=== PATIENT | female | born 1960 | race Caucasian/White ===

== ENCOUNTER 2020-07-13 19:29 | Inpatient (IN) | payer OTHER, SELFPAY ==
[~2020-07-13] VITALS: Ht 165.1 cm; Wt 59.9 kg
[2020-07-13 19:30] VITALS: BP 118/68
--- NOTE | 2020-07-13 19:30 | NUR ---
PT TAKEN TO BED #11
--- NOTE | 2020-07-13 19:39 | NUR ---
JAMES MARTINES AT BEDSIDE EVALUATING PT.
--- NOTE | 2020-07-13 19:40 | NUR ---
60 Y/O FEMALE BIBA POST FALL & POSSIBLE FX PER EMS AND PT "AFTER HER DOG PULLED HER LEASH". PT REPORTS LANDING ON THE CURVE. REPORTS 02/28 "SEVERE" PAIN TO R ANKLE AND R HAND. PER EMS PT WAS GIVEN 100 mcg OF FENTANYL ON ROUTE. AREA WAS NOTED WITH READNESS, SWELLING AND DEFORMITY TO SITE. PT WAS PLACED ON CARDIAC AND PULSE OXIMETRY. BED LOCKED AND IN LOWEST POSITION. MEDHX: DEPRESSION, ANXIETY AND FRIBROMYALGIA ALLERGIES TO VOLTAREN PILL FORM.
--- NOTE | 2020-07-13 19:46 | NUR ---
XRAY AT BEDSIDE.
[2020-07-13] MEDS ORDERED: MORPHINE SULFATE 4 MG/ML SYR IVP ONE (20:25)
--- NOTE | 2020-07-13 20:45 | NUR ---
PT SIGNED CONSENT FOR MODERATE SEDATION PROCEDURE TO HAVE REDUCTION OF R ANKLE.
[2020-07-13] MEDS ORDERED: PROPOFOL 200 MG/20 ML VIAL IV ONE (20:50)
--- NOTE | 2020-07-13 21:22 | NUR ---
PT WAS NOTED DESATURATING TO 93% ON RA ON PULSE OXIMETRY, PT WAS PLACED ON 2 L VIA NC.
--- NOTE | 2020-07-13 21:25 | NUR ---
PROCEDURE FOR R ANKLE REDUCTION ON MODERATE SEDATION INITIATED. ER MD TO ADMINISTER MEDICATION. RT AT BEDSIDE WITH AMBU-BAG 7 SUCTION SET UP. PT ON TEXTILE KNITTER, PULSE OXIMETRY AND BP MONITORING Q5 MIN. 2 L NC RUNNING. SEE MODERATE SEDATION RECORD FOR FURTHER DETAILS.
--- NOTE | 2020-07-13 21:26 | NUR ---
RECEIVED EMERGENCY CONTACT: CARO (DAUGHTER) .
--- NOTE | 2020-07-13 21:35 | NUR ---
ASSISTED WITH SEDATION AND REDUCTION PROCEDURE. PLACED POSTERIOR LONG LEG SPLINT ON PT R LEG, WRAPPED WITH DANICA WRAP. +CSM
--- NOTE | 2020-07-13 21:56 | NUR ---
LENA SWAB COLLECTED AND TAKEN TO LAB.
[2020-07-13] MEDS ORDERED: POTASSIUM CHLORIDE 10 MEQ TABER PO PRN (22:10)
[2020-07-13] MEDS ORDERED: ZOLPIDEM 5 MG TAB PO PRN (22:10)
[2020-07-13] MEDS ORDERED: MAG SULF 2000 MG/WATER PREMIX 50 ML IV PRN (22:10)
[2020-07-13] MEDS ORDERED: LORazepam 2 MG/ML VIAL IM/IVP PRN (22:10)
[2020-07-13] MEDS ORDERED: DOCUSATE SODIUM 100 MG GELCAP PO PRN (22:10)
[2020-07-13] MEDS ORDERED: ONDANSETRON 4 MG/2 ML VIAL IM/IVP PRN (22:10)
--- NOTE | 2020-07-13 22:20 | NUR ---
X-RAY AT BEDSIDE.
--- NOTE | 2020-07-13 22:20 | NUR ---
CALLED TO BEDSIDE FOR CONSC SEDATION PT WAS PLACED ON ETCO2 (NC) PT TOLERATED WELL
--- NOTE | 2020-07-13 22:34 | NUR ---
LABS COLLECTED AND HANDED TO POWDER MILL OPERATOR.
[2020-07-13 22:44] LABS: BASOPHILS % (AUTO) 0.3 % (0.0-2.0); EOSINOPHILS % (AUTO) 0.1 % (0.0-4.0); HEMATOCRIT 43.5 % (36-48); HEMOGLOBIN 14.4 g/dL (12.0-16.0); LYMPHOCYTES # (AUTO) 1.6 K/uL (2.5-16.5); LYMPHOCYTES % (AUTO) 9.3 % (20.5-51.1); MEAN CORPUSCULAR HEMOGLOBIN 31 pg (27-31); MEAN CORPUSCULAR HGB CONC 33 g/dL (33-37); MEAN CORPUSCULAR VOLUME 93.8 fL (80-94); MONOCYTES # (AUTO) 0.6 K/uL (0.8-1.0); MONOCYTES % (AUTO) 3.3 % (1.7-9.3); NEUTROPHILS # (AUTO) 14.7 K/uL (1.8-7.7); PLATELET COUNT (AUTO) 246 K/uL (140-450); RED BLOOD CELL COUNT(AUTO) 4.63 MIL/uL (4.20-5.40); RED CELL DISTRIBUTION WIDTH 13.6 % (11.6-13.7); WHITE BLOOD COUNT (AUTO) 16.9 K/uL (4.8-10.8)
[2020-07-13] MEDS: DEXT 5% /NACL 0.9% 1,000 ML IV SCH (22:49)
--- NOTE | 2020-07-13 22:50 | NUR ---
PT TAKEN TO CT VIA RSPENCER.
--- NOTE | 2020-07-13 22:56 | NUR ---
PT RETURNED FROM CT.
[2020-07-13 23:12] LABS: CHOL/HDL RATIO 5.2 (1-4.5); MAGNESIUM 1.9 mg/dL (1.8-2.4); PHOSPHORUS 2.7 mg/dL (2.5-4.9); THYROID STIMULATING HORMONE 1.23 uIU/mL (0.34-3.74)
[2020-07-13 23:28] LABS: ANION GAP 9.9 (8-16); CARBON DIOXIDE 29.9 mmol/L (21-32); POTASSIUM 3.8 mmol/L (3.5-5.1)
[2020-07-13 23:29] LABS: CREATININE 0.8 mg/dL (0.6-1.3)
[2020-07-13 23:41] LABS: PROTHROMBIN TIME 9.6 secs (10.8-13.4)
--- NOTE | 2020-07-13 23:42 | NUR ---
PODIATRY CONSULT AT BEDSIDE EVALUATING PT.
[2020-07-13] MEDS ORDERED: GABA300C PO (23:48)
[2020-07-13] MEDS ORDERED: DULO20EC PO (23:48)
--- NOTE | 2020-07-14 00:01 | NUR ---
SHIP YARD ELECTRICAL PERSON AT BEDSIDE PERFORMING PROCEDURE ON R ANKLE/LEG AT BEDSIDE.
[2020-07-14] MEDS: LACTATED RINGERS 1,000 ML IV SCH (00:11)
--- NOTE | 2020-07-14 01:52 | NUR ---
Patient appears to be resting comfortably in bed. Vital Signs within normal limits. Respirations even and unlabored. Pt still verbalizes having some discomfort at site: R ankle and R arm. No current c/o of pain. Remains on 2 L of oxygen via NC on site monitor, pulse oximetry and bp monitoring.
--- NOTE | 2020-07-14 03:35 | NUR ---
Pt was offerred to use restroom via bedpan Pt stated, "no i dont need to use the bathroom right now". She appears to be resting comfortably in bed. Vital Signs within normal limits. Respirations even and unlabored. Pt still verbalizes having some discomfort at site: R ankle and R arm. No current c/o of pain. Titrated oxygen to 1 L of oxygen via NC pt doing well. Remains on cardiac specialist, pulse oximetry and bp monitoring.
--- NOTE | 2020-07-14 04:15 | NUR ---
LAB AT BEDSIDE COLLECTING MORNING LABS.
--- NOTE | 2020-07-14 05:57 | NUR ---
PT STILL LAYING IN BED, BREATHING EVEN AND UNLABORED. SHE CONTINUES ON DROSS PULLER, PULSE OXIMETRY & BP MONITOR. REMAINS ON 1 L OF OXYGEN VIA NC. BED LOCKED AND IN LOWEST POSITION. WAS OFFERED ASSISTANCE TO USE BATHROOM VIA BEDPAN. PT STATED, "NO I'M OKAY THANK YOU". PT WAS REPOSITIONED FOR COMFORT.
[2020-07-14 06:21] LABS: BASOPHILS % (AUTO) 0.4 % (0.0-2.0); EOSINOPHILS # (AUTO) 0.1 K/uL (0-0.4); EOSINOPHILS % (AUTO) 0.5 % (0.0-4.0); HEMATOCRIT 42.5 % (36-48); HEMOGLOBIN 14.3 g/dL (12.0-16.0); LYMPHOCYTES # (AUTO) 2.6 K/uL (2.5-16.5); LYMPHOCYTES % (AUTO) 21.8 % (20.5-51.1); MEAN CORPUSCULAR HEMOGLOBIN 32 pg (27-31); MEAN CORPUSCULAR HGB CONC 34 g/dL (33-37); MEAN CORPUSCULAR VOLUME 94.1 fL (80-94); MONOCYTES # (AUTO) 0.8 K/uL (0.8-1.0); MONOCYTES % (AUTO) 6.5 % (1.7-9.3); NEUTROPHILS # (AUTO) 8.5 K/uL (1.8-7.7); NEUTROPHILS % (AUTO) 70.8 % (42.2-75.2); PLATELET COUNT (AUTO) 204 K/uL (140-450); RED BLOOD CELL COUNT(AUTO) 4.52 MIL/uL (4.20-5.40); RED CELL DISTRIBUTION WIDTH 13.7 % (11.6-13.7)
[2020-07-14 06:35] LABS: ANION GAP 9.9 (8-16); CARBON DIOXIDE 27.9 mmol/L (21-32); CREATININE 0.8 mg/dL (0.6-1.3); POTASSIUM 3.8 mmol/L (3.5-5.1)
--- NOTE | 2020-07-14 07:00 | NUR ---
Pt was reofferred to use restroom via bedpan Pt stated, "I am so sorry i cant go i haven't had anything to drink since yesterday evening".
[2020-07-14 07:08] LABS: MAGNESIUM 1.9 mg/dL (1.8-2.4); PHOSPHORUS 3.2 mg/dL (2.5-4.9)
--- NOTE | 2020-07-14 07:12 | NUR ---
REPORT GIVEN TO AMAIRANI WATSON FOR CONTINUITY OF CARE.
--- NOTE | 2020-07-14 07:13 | NUR ---
REPORT RECEIVED FROM WALTER BUSTILLO. [place] OF [facility] AT THIS TIME.
[2020-07-14] MEDS: MORPHINE SULFATE 2 MG/ML SYR IVP PRN ×2 (07:34→11:05)
--- NOTE | 2020-07-14 08:19 | NUR ---
PT STATES THE PAIN IS STILL 7/10 AFTER RECEIVING MORPHINE 2MG IVP. 2 ICE PACKS PLACES ON PT'S RIGHT WRIST.
--- NOTE | 2020-07-14 08:59 | NUR ---
Dr. Samuel is evaluating the patient at bedside.
--- NOTE | 2020-07-14 09:00 | NUR ---
CONFIRMED WITH DR. LOCK TO HOLD HEPARIN 5000 UNITS.
--- NOTE | 2020-07-14 09:07 | NUR ---
BREAKFAST ORDERED FOR PT PER DR. TRUONG'S ORDER.
--- NOTE | 2020-07-14 09:35 | NUR ---
Breakfast provided to pt. Pt will be on NPO after breakfast per Dr. Samuel's order.
--- NOTE | 2020-07-14 11:35 | NUR ---
SOCIAL WORK NOTE: SW WAS UNABLE TO MEET PATIENT AT BEDSIDE. PATIENT HAS NO AVAILABLE CONTACTS TO COMPLETE ASSESSMENT. SW WILL FOLLOW UP WITH PATIENT. Addendum: 07/15/20 at 1318 by Laz Schuler Patient's Orientation Person Situation Place Time Information Provided By PATIENT Comments SW WAS UNABLE TO MEET WITH PATIENT AT BEDSIDE. SW COMPLETED ASSESSMENT WITH PATIENT TELEPHONICALLY. PATIENT PROVIDED EMERGENCY CONTACT FOR DAUGHTER HARDEEP GARCIA. Hardboard Coating Machine Operator, Realtionship and Phone Number HARDEEP GARCIA DAUGHTER [phone] [facility] Power of Equipment Driver No Does Patient Have a POLST No Identifying Problems No Social Work Triggers Is A Social Work Consult Needed No Mandate Report Filed No Explanation Of Identifying Problems PATIENT IS A 60-YEAR-OLD FEMALE ADMITTED FOR TRIMALCOLAR FRACTURE. PATIENT HAS PMHX OF FIBROMYALGIA. PATIENT REPORTED NO HISTORY OF SUBSTANCE ABUSE. PATIENT DISCLOSED THAT SHE WAS DIAGNOSED WITH DEPRESSION BUT REFUSED MENTAL HEALTH RESOURCES. PATIENT STATED SHE HAS SUPPORT GROUPS THAT SHE SPEAKS WITH REGARDING HER DEPRESSION AND IS NO LONGER AN ISSUE. Admitted From Home Pre-Admission Level Of Functioning Status Independent/Ambulatory Prior Resources/Services Used In Last 12 Months No Prior Resources Used Prior DME No Prior DME Used Dialysis Comments N/A Living Situation Lives With Family House Other Living Situation/Comment PATIENT REPORTED LIVING WITH TWO DAUGHTERS. Patient Had Caregiver No Home Support No Caregiver Issues Financial Issues No Known Financial Issue Referral To The Financial Counselor Needed No Factors/Needs No D/C Needs Identified Explanation And Or Other Factors Affecting/Possible DC Needs PATIENT STATED THAT SHE MAY HAVE DIFFICULTY WITH TRANSPORTATION AT DISCHARGE. Pt/Rep Participated In Discharge Plan Yes Patient/Family Agress With Discharge Plan Yes Discharge Plan Comments TENTATIVE DISCHARGE PLAN IS FOR PATIENT TO RETURN HOME. DC Plan Status Initiated
--- NOTE | 2020-07-14 12:20 | NUR ---
Patient will be admitted to care of Dr. Mcclellan. Admited to Med-Surg. Will go to [id number]. Belongings list completed. Report to WALTER Otto.
[2020-07-14] MEDS: DEXT 5% /NACL 0.9% 1,000 ML IV SCH (12:28)
--- NOTE | 2020-07-14 12:40 | NUR ---
PT ADMITTED FROM ED. STABLE CONDITION, R. ELBOW SWOLLEN ICA PACK APPLIED. R. ANKLE HAS SPLINT, UNABLE TO VISUAL FRACTURE. YELLOW GOWN DONNED, IV LINE DRY, CLEAN, INTACT. PT STATES SHE HAS THROBBING PAIN AT FRACTURE SITE, WILL FOLLOW UP WITH PAIN MEDICATION ORDERED. OFFERED NORCO AND REFUSED. WOULD LIKE PHYSICIAN TO INCREASE MORPHINE TO 4MG INSTEAD OF 2. WILL CONTACT ADMITTING MD. PT CALL LIGHT WITHIN REACH, PLACED PT ON BEDPAN TO COLLECT URINE, PT UNABLE TO VOID, REMOVED AFTER 5 MINUTES TO AVOID SKIN BREAKDOWN, PT TO CALL WHEN FEELING LIKE VOIDING.
--- NOTE | 2020-07-14 13:30 | NUR ---
COMPLETED PT. ADMISSION SHUN BARRON A/Ox4. PT WILLAM LUNG SOUND CLEAR, S1S2 NOTED, NO EDEMA ON L.L.EXTREMITY OR L.UPPER EXTREMITY, L. ELBOW SWELLING, COLD COMPRESS HAS BEEN PLACED, ABD SOFT, TENDER, ACTIVE BOWEL SOUNDS, SKIN INTACT. CAP REFILL<3, UNABLE TO VISUALIZE R. ANKLE DUE TO SOFT CAST PLACED, PT STATES SHE FEEL WARM ON HER R. FOOT, INFORMED HER IT WAS DUE TO THE CAST, BUT IF HEAT BECAME INTOLERABLE TO INFORM ME, PT CAN MOVE TOES ON R. FOOT. IV SITE DRY, CLEAN, INTACT L.AC 20G. Addendum: 07/14/20 at 1906 by Clarita Westfall RN RN CORRECTION: R. ELBOW SWELLING
--- NOTE | 2020-07-14 13:57 | NUR ---
DC PLANNIN YRS OLD FEMALE PATIENT WAS ADMITTED FROM HOME WITH A DX OF TRIMALLEOLAR FRACTURE. PT HAS A HX OF FIBROMYALGIA. XRAY OF THE RIGHT ANKLE SHOWED RT TIBIA-FIBULA FRACTURE, MORTISE DISLOCATION .CXR SHOWED NORMAL CHEST. RAPID COVID TEST NEGATIVE. ADMINISTERED IVF, MORPHINE IV FOR PAIN AND CONSULTED WITH PODIATRY AND ORTHO SURGEON. DC PLAN PER RECOMMENDATION CM TO FOLLOW Addendum: 07/15/20 at 1500 by Luz Maria Day RN DC PLANNING: PT UNDERWENT ORIF OF RIGHT ANKLE ,PERFORMED BY PODIATRY DR TRUONG. SUPPORTIVE CARE AND PAIN MANAGEMENT WILL BE CONTINUED PT EVAL AND WOUND CARE ORDERED DC PLAN TO GO HOME WHEN STABLE AND FOLLOW UP WITH PODIATRY DR TRUONG. AND SEEN BY ORTHO DR ARELLANO ORDERED PT CAN FOLLOW UP WITH DR ARELLANO FOR THE RIGHT ELBOW IN 3 WEEKS AFTER DISCHARGE. DC PLAN AWAITING FOR PT RECOMMENDATION. CM TO FOLLOW Addendum: 07/15/20 at 1505 by Laz GLOVER YENIFER CONTACTED PATIENT'S ROOM PHONE REGARDING DISCHARGE PLAN. YENIFER HAD DISCUSSION WITH PATIENT REGARDING PATIENT'S INSURANCE BELONGING TO [place]. PATIENT STATED THAT SHE WOULD PREFER TO STAY AT HOME WITH HOME HEALTH. YENIFER NOTIFIED MANAGER GOVERNMENT. Addendum: 07/15/20 at 1530 by Laz Schuler SS YENIFER CONTACTED [facility] DEPARTMENT AND SPOKE TO MANUELITO [phone]. YENIFER REQUESTED CONTRACTED HOME HEALTHS FOR PATIENT. MANUELITO STATED SHE WOULD FAX LIST TO CASE MANAGEMENT FAX [phone]. Addendum: 07/15/20 at 1552 by Dora Goddard CHARLES MONAHAN: CALLED DR. TIFF MUKHERJEE'S OFFICE TO SCHEDULE THIS PATIENT A FOLLOW UP APPOINTMENT. SPOKE TO LENELLE SHE STATED THAT DR MUKHERJEE SAID HE IS NOT THE ONE WHO DID THE PROCEDURE ON THIS PATIENT AND THEY ALSO WOULD NOT BE ABLE TO SEE PATIENT WITHOUT A REFERRAL FROM [facility]. PATIENT WOULD HAVE TO SEE HER PCP FIRST AND THEN GET REFERRED FROM THERE. Addendum: 07/16/20 at 1442 by Laz GLOVER YENIFER CONTACTED NATASHA FROM [facility] REGARDING CONTRACTED FACILITIES FOR DISCHARGE PLAN. NATASHA STATED THAT [facility] IS CONTRACTED WITH MAGI HORNE, [facility], AND [facility]. YENIFER FAXED TO ALL THREE FACILITIES AND FOLLOWED UP. YENIFER LEFT A MESSAGE WITH BETTY AT [facility]. YENIFER LEFT VM WITH BARRERA AT [facility]. ZECHARIAH SIBLEY CONTACTED [facility] GRANDA. Addendum: 07/18/20 at 1215 by Luz Maria Day RN DC PLANNING: CHECKED WITH MAGI HARRIS [facility] , THEY ARE ON HOLD TO ADMIT [facility] DEANDRA GRANDA NO BED AVAILABLE. FAXED TO [facility] CM TO FOLLOW Addendum: 07/18/20 at 1245 by Luz Maria Day RN DC PLANNING: CALLED AARON WEAVER SPOKE WITH UMAIR GARZON REVIEWING WILL CALL BACK , PER [facility] ON [facility]. AARON LIRIANO AND [facility] STILL REVIEWING CM TO FOLLOW. Addendum: 07/18/20 at 1347 by Luz Maria Day RN DC PLANNING: RECEIVED A CALL FROM [facility] WEAVER SPOKE WITH UMAIR , ACCEPTED PATIENT CAN GO TO ROOM 22 AND # TO GIVE REPORT [phone] [address] [facility] [id number] ARRANGE TRANSPORT WITH [employer] [phone] SPACE TECHNOLOGIST TIME 4 PM RESERVATION # [phone] [id number] NOTIFIED MEREDITH WATSON. Addendum: 07/18/20 at 1559 by Luz Maria Day RN DC PLANNING: PT REFUSED TO GO TO SNF PREFERRED HOME WITH HOME HEALTH EXPLAINED THAT IT WILL BE SAFE DISCHARGE IF SHE GOES TO SNF FOR PHYSICAL THERAPY BUT PT INSIST TO GO HOME . DOROTHE[facility] SUP EXPLAINED BED SIDE COMMODE AND WHEELCHAIRE WONT BE READY TODAY OR ON THE WEEKEND AND THERE IS NO HOME HEALTH ON WEEKEND. PT STILL INSIST TO GO HOME AND AGREED THAT WITH THE DELAY OF THE WHEELCHAIR OR BED SIDE [facility] AND HOME HEALTH FAXED TO [facility] CM TO FOLLOW.
--- NOTE | 2020-07-14 14:00 | NUR ---
D5/NS INITIATED AT 70 ML/HR. PT IV PATENT, RUNNING. PT TOLERATED PROCEDURE WELL. PT STILL DENIES NEED TO VOID TO COLLECT UA.
--- NOTE | 2020-07-14 16:00 | NUR ---
PT'S BELONGINGS WERE COLLECTED BY DAUGHTER HARDEEP. PANTS, BLOUSE, UNDERGARMENTS, SHOES AND WALLET. BOTH PATIENT AND DAUGHTER ACKNOWLEDGE THAT WALLET WAS GIVEN TO HARDEEP. MARSHALL WAS COUNTED AND $140 WERE IN WALLET UPON HANDING OFF TO DAUGHTER.
[2020-07-14] MEDS: MORPHINE SULFATE 4 MG/ML SYR IVP PRN (16:23)
--- NOTE | 2020-07-14 16:23 | NUR ---
PT C/O SEVERE PAIN AT R. ANKLE AND R. ELBOW 03/31. ADMINISTERED MORPHINE 4MG/6ML OVER TWO MINUTE PERIOD, FLUSHING WITH 6 ML OF NS AFTERWARDS. PT TOLERATED PROCEDURE WELL
[2020-07-14 16:31] VITALS: BP 107/67
--- NOTE | 2020-07-14 17:32 | NUR ---
REASSESSED PAIN, PT AT 12/29 WHICH SHE STATES IS COMFORTABLE FOR HER AT THIS TIME. COLD COMPRESS REPLACED D/T PREVIOUS ONE ALREADY WARM. SWELLING HAS DECREASED FROM THE ORIGINAL STATE WHEN ADMITTED TO UNIT. PT TOLERATED ICE COMPRESS WELL.
--- NOTE | 2020-07-14 18:03 | NUR ---
PT VOIDED 400ML. URINE SPECIMEN COLLECTED AND SUBMITTED TO LAB FOR PROCESSING.
[2020-07-14 18:15] LABS: APPEARANCE,URINE CLEAR (CLEAR); BILIRUBIN,URINE 1+ (NEGATIVE); BLOOD, URINE NEGATIVE (NEGATIVE); COLOR,URINE DARK YELLOW (YELLOW); LEUKOCYTE ESTERASE ,URINE NEGATIVE (NEGATIVE); NITRITE, URINE NEGATIVE (NEGATIVE); UGLUCOSE NEGATIVE (NEGATIVE)
--- NOTE | 2020-07-14 18:31 | NUR ---
COLLECTED MRSA NARES SAMPLE, PT TOLERATED PROCEDURE WELL, DROPPED OFF SPECIMEN AT LAB
--- NOTE | 2020-07-14 19:15 | NUR ---
ENDORSED PT TO KURT INDUCTION FURNACE OPERATOR NURSE. PT STABLE, COMFORTABLE IN BED, REMOVED COLD COMPRESS, CALL LIGHT WITHIN REACH, BED LOWEST POSITION.
--- NOTE | 2020-07-14 19:16 | NUR ---
RECEIVED REPORT FROM ASHA RNGIO. PT AOX4 ON ROOM AIR, AWAITING SCHEDULED ORIF. NO S/S RESPIRATORY DISTRESS. IV SITE LAC 20G PATENT AND INTACT INFUSING IVF ORDERED. HAS SPLINT ON RIGHT ANKLE AND SWELLING ON RIGHT ELBOW. SAFETY MEASURES IN PLACE. CALL LIGHT WITHIN REACH. WILL CONTINUE TO MONITOR
[2020-07-14 19:27] LABS: BARBITURATE, URINE NEGATIVE ng/ml (NEG <=200); BENZODIAZEPINE, URINE NEGATIVE ng/mL (NEG <=200); CANNABINOID, URINE NEGATIVE ng/mL (NEG <=50); COCAINE, URINE NEGATIVE ng/mL (NEG <=300); OPIATE, URINE POSITIVE ng/mL (NEG <=2000); PHENCYCLIDINE SCREEN,URINE NEGATIVE ng/mL (NEG <=25)
[2020-07-14] MEDS ORDERED: GLYCOPYRROLATE 0.2 MG/ML VIAL ONE (19:45)
[2020-07-14] MEDS ORDERED: ROCURONIUM 50 MG/5 ML VIAL IV ONE (19:45)
[2020-07-14] MEDS ORDERED: METOCLOPRAMIDE 10 MG/2 ML INJ VIAL ONE (19:45)
[2020-07-14] MEDS ORDERED: DEXAMETHASONE 4 MG/ML VIAL ONE (19:45)
[2020-07-14] MEDS ORDERED: NEOSTIGMINE 1:1000 10 MG/10 ML VIAL ONE (19:45)
[2020-07-14] MEDS ORDERED: PROPOFOL 200 MG/20 ML VIAL IV ONE (19:45)
[2020-07-14] MEDS ORDERED: ONDANSETRON 4 MG/2 ML VIAL ONE (19:45)
[2020-07-14] MEDS ORDERED: MIDAZOLAM 2 MG/2 ML VIAL ONE (19:45)
[2020-07-14] MEDS ORDERED: fentaNYL citrate 0.05 MG/ML VIAL ONE (19:45)
[2020-07-14] MEDS ORDERED: LIDOCAINE 2% 100 MG/5 ML SYR IVP ONE (19:45)
[2020-07-14] MEDS ORDERED: BUPIVACAINE-MPF 0.5% 30 ML VIAL INJ ONE ×2 (19:49→19:50)
[2020-07-14] MEDS ORDERED: LIDOCAINE 1% 500 MG/50 ML VIAL ONE (19:49)
--- NOTE | 2020-07-14 20:00 | NUR ---
OFF UNIT FOR SX. PATIENT IN STABLE CONDITION.
[2020-07-14] MEDS ORDERED: HYDROmorphone 1 MG/ML AMP IVP PRN (21:15)
[2020-07-14] MEDS ORDERED: ONDANSETRON 4 MG/2 ML VIAL IVP PRN (21:15)
[2020-07-14] MEDS ORDERED: MEPERIDINE 25 MG/ML SYR IVP PRN (21:15)
[2020-07-14] MEDS ORDERED: diphenhydrAMINE 50 MG/ML VIAL IVP PRN (21:15)
--- NOTE | 2020-07-14 23:51 | NUR ---
PT BACK FROM SX. VS: TEMP 97.0 BP 117/74 HR 81 O2 SAT 94% RR 18. SAFETY MEASURES IN PLACE. CALL LIGHT WITHIN REACH
--- NOTE | 2020-07-14 23:55 | NUR ---
ICING AND ELEVATION TO RLE. PT IS STABLE. CALL LIGHT WITHIN REACH. SAFETY MEASURES IN PLACE. WILL CONTINUE TO MONITOR
[2020-07-15] MEDS: MORPHINE SULFATE 4 MG/ML SYR IVP PRN ×2 (01:34→11:07)
--- NOTE | 2020-07-15 01:36 | NUR ---
ADMINISTERED PRN PAIN MED FOR ANKLE PAIN 02/28. TOLERATED WELL. NO DISTRESS NOTED. WILL CONTINUE TO MONITOR
--- NOTE | 2020-07-15 02:45 | NUR ---
PT ASLEEP IN BED. RESPIRATIONS EVEN AND UNLABORED. NO DISTRESS NOTED. WILL CONTINUE TO MONITOR
[2020-07-15] MEDS: DEXT 5% /NACL 0.9% 1,000 ML IV SCH (03:31)
[2020-07-15] MEDS: HYDROcodone/APAP 5/325 MG 1 TAB TAB PO PRN ×3 (03:32→16:40)
[2020-07-15 04:30] VITALS: BP 94/64
[2020-07-15] MEDS: LACTATED RINGERS 1,000 ML IV SCH (05:30)
--- NOTE | 2020-07-15 06:00 | NUR ---
NO DRAINAGE ON SX DRESSING, SKIN WARM AND PINK, NO SWELLING, ABLE TO WIGGLE TOES ON RIGHT FOOT.
[2020-07-15 06:07] LABS: BASOPHILS % (AUTO) 0.1 % (0.0-2.0); HEMATOCRIT 40.4 % (36-48); HEMOGLOBIN 13.3 g/dL (12.0-16.0); LYMPHOCYTES # (AUTO) 1.1 K/uL (2.5-16.5); LYMPHOCYTES % (AUTO) 8.2 % (20.5-51.1); MEAN CORPUSCULAR HEMOGLOBIN 31 pg (27-31); MEAN CORPUSCULAR HGB CONC 33 g/dL (33-37); MEAN CORPUSCULAR VOLUME 94.1 fL (80-94); MONOCYTES # (AUTO) 0.8 K/uL (0.8-1.0); MONOCYTES % (AUTO) 5.9 % (1.7-9.3); NEUTROPHILS # (AUTO) 11.5 K/uL (1.8-7.7); NEUTROPHILS % (AUTO) 85.8 % (42.2-75.2); PLATELET COUNT (AUTO) 236 K/uL (140-450); RED BLOOD CELL COUNT(AUTO) 4.29 MIL/uL (4.20-5.40); RED CELL DISTRIBUTION WIDTH 13.8 % (11.6-13.7); WHITE BLOOD COUNT (AUTO) 13.3 K/uL (4.8-10.8)
[2020-07-15 06:56] LABS: ANION GAP 17.3 (8-16); CARBON DIOXIDE 24.6 mmol/L (21-32); CREATININE 0.9 mg/dL (0.6-1.3); POTASSIUM 3.9 mmol/L (3.5-5.1)
[2020-07-15 07:00] LABS: MAGNESIUM 1.8 mg/dL (1.8-2.4); PHOSPHORUS 2.9 mg/dL (2.5-4.9)
--- NOTE | 2020-07-15 07:20 | NUR ---
ENDORSED PT TO DAY RN FOR CONTINUITY OF CARE. PT IS IN STABLE CONDITION
--- NOTE | 2020-07-15 08:00 | NUR ---
RECEIVED REPORT FROM DESKTOP OPERATOR. PATIENT ALERT AWAKE ORIENTED X4, NOT IN ANY DISTRESS NOTED. WITH IVF ON GOING AND INFUSING WELL. C/O RIGHT ANKLE PAIN, MEDICATED ORDERED. PATIENT TO WIGGLE ALL TOES ON THE RIGHT FOOT. DISCUSSED THE PLAN OF CARE AND VERBALIZED UNDERSTANDING, IN STABLE CONDITION. WILL CONTINUE TO MONITOR.
[2020-07-15 08:07] LABS: T4 (THYROXINE) 7.8 ug/dL (4.5-12.0)
--- NOTE | 2020-07-15 09:14 | NUR ---
PATIENT HAS BEEN SCREENED AND CATEGORIZED LOW NUTRITION RISK. PATIENT WILL BE SEEN WITHIN 7 DAYS OF ADMISSION. 07/20/[address]
[2020-07-15 12:00] VITALS: BP 106/71
[2020-07-15 18:00] VITALS: BP 138/76
--- NOTE | 2020-07-15 19:57 | NUR ---
PATIENT NO IV AT THIS TIME, TRIED COUPLE OF TIME UNSUCCESSFUL. WILL ENDORSE TO THE NEXT SHIFT. REPORT GIVEN IN STABLE CONDITION.
--- NOTE | 2020-07-15 19:58 | NUR ---
RECD. RESTING IN BED, AWAKE, A/OX4. RESPIRATION EVEN AND UNLABORED. WATCHING TV. INCISION IN THE RIGHT ANKLE WITH DANICA WRAPPED BANDAGE, TOES POSITIVE FOR MOVEMENTS, SENSATION, CAPILLARY REFILL LESS THREE SECONDS. DANICA WRAPPED AT THE RIGHT ELBOW IN PLACED. USES BEDPAN. PAIN IN THE RIGHT ANKLE, 08/31 STATED TOLERABLE. WILL MEDICATE PER MD ORDER. ON ROOM AIR. TOLERATING REGULAR DIET.
[2020-07-15] MEDS: ACETAMINOPHEN 325 MG TAB PO PRN (19:59)
--- NOTE | 2020-07-15 20:56 | NUR ---
NORCO 5/325 MG 1 TAB PO GIVEN FOR RIGHT ANKLE PAIN 01/29.
--- NOTE | 2020-07-15 21:56 | NUR ---
RESTING COMFORTABLY IN BED, STATED PAIN DECREASED, 3/10.
--- NOTE | 2020-07-15 22:00 | NUR ---
Patient's Plan of Care was discussed and reviewed with OVEN HEATER HELPER: FAITH DE LA GARZA
--- NOTE | 2020-07-16 | NUR ---
ASSISTED WITH BED MCCOY X2, MADE COMFORTABLE IN BED.
--- NOTE | 2020-07-16 02:00 | NUR ---
RESTING COMFORTABLY SLEEPING IN BED.
[2020-07-16 04:00] VITALS: BP 113/77
--- NOTE | 2020-07-16 05:00 | NUR ---
PATIENT IS A HARD STICK, UNABLE TO PUT NEW IV LINE.
[2020-07-16] MEDS: HYDROcodone/APAP 5/325 MG 1 TAB TAB PO PRN ×4 (05:28→22:13)
[2020-07-16 05:29] LABS: BASOPHILS % (AUTO) 0.3 % (0.0-2.0); EOSINOPHILS # (AUTO) 0.1 K/uL (0-0.4); EOSINOPHILS % (AUTO) 0.6 % (0.0-4.0); HEMATOCRIT 35.8 % (36-48); HEMOGLOBIN 12.1 g/dL (12.0-16.0); LYMPHOCYTES # (AUTO) 2.6 K/uL (2.5-16.5); LYMPHOCYTES % (AUTO) 26.2 % (20.5-51.1); MEAN CORPUSCULAR HEMOGLOBIN 32 pg (27-31); MEAN CORPUSCULAR HGB CONC 34 g/dL (33-37); MEAN CORPUSCULAR VOLUME 94.4 fL (80-94); MONOCYTES # (AUTO) 0.8 K/uL (0.8-1.0); MONOCYTES % (AUTO) 8.5 % (1.7-9.3); NEUTROPHILS # (AUTO) 6.3 K/uL (1.8-7.7); NEUTROPHILS % (AUTO) 64.4 % (42.2-75.2); PLATELET COUNT (AUTO) 192 K/uL (140-450); RED BLOOD CELL COUNT(AUTO) 3.79 MIL/uL (4.20-5.40); RED CELL DISTRIBUTION WIDTH 13.6 % (11.6-13.7); WHITE BLOOD COUNT (AUTO) 9.8 K/uL (4.8-10.8)
[2020-07-16 06:33] LABS: MAGNESIUM 1.7 mg/dL (1.8-2.4); PHOSPHORUS 2.3 mg/dL (2.5-4.9)
[2020-07-16 06:36] LABS: ANION GAP 11.1 (8-16); CARBON DIOXIDE 29.3 mmol/L (21-32); CREATININE 0.8 mg/dL (0.6-1.3); POTASSIUM 3.4 mmol/L (3.5-5.1)
--- NOTE | 2020-07-16 07:00 | NUR ---
CONDITION REMAIN STABLE. WILL ENDORSE TO AM SHIFT NURSE FOR CONTINUITY OF CARE.
--- NOTE | 2020-07-16 07:30 | NUR ---
RECEIVED PT AAOX4. NO SOB NOTED. NO C/O PAIN AT THIS TIME. INSTRUCTED PT TO CALL FOR ASSISTANCE, CALL LIGHT WITHIN REACH, PT VERBALIZED UNDERSTANDING.
[2020-07-16 08:00] VITALS: BP 127/79
[2020-07-16] MEDS ORDERED: HYDR-5122 PO (11:40)
[2020-07-16] MEDS ORDERED: POTASSIUM CHLORIDE 10 MEQ TABER PO SCH (12:00)
[2020-07-16] MEDS ORDERED: MAGNESIUM OXIDE 400 MG TAB PO SCH (12:00)
[2020-07-16] MEDS ORDERED: IBUPROFEN 800 MG TAB PO PRN (12:45)
[2020-07-16] MEDS ORDERED: ACETAMINOPHEN/CODEINE 300/30MG 1 TAB PO PRN (12:45)
[2020-07-16] MEDS: ACETAMINOPHEN 325 MG TAB PO PRN ×2 (13:14→20:10)
--- NOTE | 2020-07-16 15:00 | NUR ---
TOÑITO METAL DOOR ASSEMBLER SPOKE WITH PT REGARDING DISCHARGE PLAN.
[2020-07-16 16:00] VITALS: BP 121/73
--- NOTE | 2020-07-16 19:01 | NUR ---
PT RESTING. NO SOB NOTED. NO COMPLAINTS MADE. WILL ENDORSE TO NEXT SHIFT NURSE FOR CONTINUITY OF CARE.
--- NOTE | 2020-07-16 19:05 | NUR ---
RECD. RESTING IN BED, AWAKE, A/OX4. RESPIRATION EVEN AND UNLABORED. NO IV LINE, MD TEJAS IS AWARE. RIGHT ARM WITH FRACTURE ON A SLING. RIGHT ANKLE FRACTURE WITH CAST AND DANICA WRAP BANDAGE, TOES WITH NORMAL SENSATION, POSITIVE FOR MOVEMENTS, CAPILLARY REFILL LESS THREE SECONDS. DENIES PAIN 0/10.
--- NOTE | 2020-07-16 19:10 | NUR ---
Patient's Plan of Care was discussed and reviewed with SUPERVISOR IN CHARGE: FAITH DE LA GARZA
[2020-07-16 20:00] VITALS: BP 113/76
--- NOTE | 2020-07-16 20:00 | NUR ---
ASSISTED WITH BED MCCOY BY FRONTEND ENGINEER, REPOSITIONED IN BED FOR COMFORT.
[2020-07-17 04:00] VITALS: BP 140/83
[2020-07-17] MEDS: HYDROcodone/APAP 5/325 MG 1 TAB TAB PO PRN ×3 (05:22→20:19)
[2020-07-17 06:22] LABS: BASOPHILS # (AUTO) 0.1 K/uL (0.00-0.22); BASOPHILS % (AUTO) 0.6 % (0.0-2.0); EOSINOPHILS # (AUTO) 0.1 K/uL (0-0.4); EOSINOPHILS % (AUTO) 1.5 % (0.0-4.0); HEMOGLOBIN 12.4 g/dL (12.0-16.0); LYMPHOCYTES # (AUTO) 2.2 K/uL (2.5-16.5); LYMPHOCYTES % (AUTO) 23.8 % (20.5-51.1); MEAN CORPUSCULAR HEMOGLOBIN 32 pg (27-31); MEAN CORPUSCULAR HGB CONC 34 g/dL (33-37); MEAN CORPUSCULAR VOLUME 94.4 fL (80-94); MONOCYTES # (AUTO) 0.8 K/uL (0.8-1.0); MONOCYTES % (AUTO) 8.2 % (1.7-9.3); NEUTROPHILS # (AUTO) 6.1 K/uL (1.8-7.7); NEUTROPHILS % (AUTO) 65.9 % (42.2-75.2); PLATELET COUNT (AUTO) 206 K/uL (140-450); RED BLOOD CELL COUNT(AUTO) 3.92 MIL/uL (4.20-5.40); RED CELL DISTRIBUTION WIDTH 13.6 % (11.6-13.7); WHITE BLOOD COUNT (AUTO) 9.2 K/uL (4.8-10.8)
[2020-07-17 07:02] LABS: ANION GAP 9.4 (8-16); CARBON DIOXIDE 32.7 mmol/L (21-32); CREATININE 0.8 mg/dL (0.6-1.3); POTASSIUM 4.1 mmol/L (3.5-5.1)
[2020-07-17 07:06] LABS: MAGNESIUM 1.9 mg/dL (1.8-2.4); PHOSPHORUS 2.4 mg/dL (2.5-4.9)
--- NOTE | 2020-07-17 07:18 | NUR ---
RECEIVED REPORT FROM NIGHT NURSE PATIENT IS AAOX4, NO IV SITES, NON WEIGHT BEARING ON RIGHT LOWER EXTREMITIES, PATIENT USING THE BED MCCOY, SAFETY MEASURES IN PLACE AND CALL LIGHT WITHIN REACH. WILL CONTINUE TO MONITOR.
[2020-07-17 08:00] VITALS: BP 121/75
[2020-07-17] MEDS: ACETAMINOPHEN 325 MG TAB PO PRN ×2 (08:32→21:49)
--- NOTE | 2020-07-17 08:36 | NUR ---
MEDICATION DUE GIVEN PATIENT COMPLAIN OF HEADACHE 6/10 GAVE TYLENOL. SAFETY MEASURES IN PLACE AND CALL LIGHT WITHIN REACH WILL CONTINUE TO MONITOR,
--- NOTE | 2020-07-17 12:00 | NUR ---
PAIN REASSESSMENT DONE AND PATIENT VERBALIZES A DECREASE IN PAIN OF 6/10 TO 5/1O
--- NOTE | 2020-07-17 13:09 | NUR ---
07/17/20 RD INITIAL ASSESSMENT COMPLETED PLEASE REFER TO NUTRITION ASSESSMENT UNDER CARE ACTIVITY FOR ESTIMATED NUTRITIONAL NEEDS. RD RECOMMENDATIONS: 1. RECOMMEND CONTINUE REGULAR DIET 2. F/U 7 DAYS; LOW RISK LAURENT ASH MBA, RD
--- NOTE | 2020-07-17 13:10 | NUR ---
PATIENT COMPLAINS OF HEADACHE AND PAIN ON THE RIGHT ANKLE 6/10. NO CHANGED IN DRESSING DRY AND INTACT.
--- NOTE | 2020-07-17 17:00 | NUR ---
MADE ROUNDS AT THIS TIME PATIENT IS STILL IN PAIN
--- NOTE | 2020-07-17 19:20 | NUR ---
ENDORSED TO NIGHT NURSE FOR CONTINUITY OF CARE. PT IS STABLE
--- NOTE | 2020-07-17 19:21 | NUR ---
RECEIVED REPORT FROM DAY RNRODDY. PT AOX4 ON ROOM AIR. RESPIRATIONS EVEN AND UNLABORED. NO DISTRESS NOTED. NO C/O PAIN AT THIS TIME. NO IV SITE IN PLACE. NW BEARING TO RIGHT LOWER EXTREMITY. SAFETY MEASURES IN PLACE. CALL LIGHT WITHIN REACH. WILL CONTINUE TO MONITOR
[2020-07-17 20:00] VITALS: BP 117/74
--- NOTE | 2020-07-17 20:22 | NUR ---
ADMINISTERED PRN PAIN MEDICATION FOR PT C/O 7/10 R ANKLE PAIN. WILL CONTINUE TO MONITOR
--- NOTE | 2020-07-17 20:25 | NUR ---
ELEVATION TO RLE. NO DRAINAGE ON SX DRESSING, SKIN WARM AND PINK, NO SWELLING, ABLE TO WIGGLE TOES ON RIGHT FOOT. WILL CONTINUE TO MONITOR
--- NOTE | 2020-07-17 21:46 | NUR ---
ADMINISTERED SCHEDULED MED. PT TOLERATED WELL. WILL CONTINUE TO MONITOR
--- NOTE | 2020-07-17 22:57 | NUR ---
ASSISTED PT TO BED MCCOY. TOLERATED WELL. NO DISTRESS NOTED. WILL CONTINUE TO MONITOR
[2020-07-18] MEDS: HYDROcodone/APAP 5/325 MG 1 TAB TAB PO PRN ×2 (00:54→09:35)
--- NOTE | 2020-07-18 02:15 | NUR ---
PT ASLEEP IN BED. RESPIRATIONS EVEN AND UNLABORED. NO DISTRESS NOTED. WILL CONTINUE TO MONITOR
[2020-07-18] MEDS: ACETAMINOPHEN 325 MG TAB PO PRN ×2 (03:51→18:28)
[2020-07-18 04:00] VITALS: BP 122/77
[2020-07-18 06:13] LABS: BASOPHILS # (AUTO) 0.1 K/uL (0.00-0.22); BASOPHILS % (AUTO) 0.6 % (0.0-2.0); EOSINOPHILS # (AUTO) 0.2 K/uL (0-0.4); EOSINOPHILS % (AUTO) 2.1 % (0.0-4.0); HEMATOCRIT 38.8 % (36-48); HEMOGLOBIN 12.9 g/dL (12.0-16.0); LYMPHOCYTES # (AUTO) 2.8 K/uL (2.5-16.5); LYMPHOCYTES % (AUTO) 29.2 % (20.5-51.1); MEAN CORPUSCULAR HEMOGLOBIN 32 pg (27-31); MEAN CORPUSCULAR HGB CONC 33 g/dL (33-37); MONOCYTES # (AUTO) 0.7 K/uL (0.8-1.0); NEUTROPHILS # (AUTO) 5.9 K/uL (1.8-7.7); NEUTROPHILS % (AUTO) 61.1 % (42.2-75.2); PLATELET COUNT (AUTO) 257 K/uL (140-450); RED BLOOD CELL COUNT(AUTO) 4.08 MIL/uL (4.20-5.40); RED CELL DISTRIBUTION WIDTH 13.5 % (11.6-13.7); WHITE BLOOD COUNT (AUTO) 9.7 K/uL (4.8-10.8)
[2020-07-18 06:57] LABS: ANION GAP 10.5 (8-16); CARBON DIOXIDE 31.6 mmol/L (21-32); CREATININE 0.8 mg/dL (0.6-1.3); POTASSIUM 4.1 mmol/L (3.5-5.1)
[2020-07-18 07:00] LABS: PHOSPHORUS 3.2 mg/dL (2.5-4.9)
--- NOTE | 2020-07-18 07:25 | NUR ---
ENDORSED PT TO DAY RN FOR CONTINUITY OF CARE. PT IS IN STABLE CONDITION
--- NOTE | 2020-07-18 07:26 | NUR ---
RECEIVED REPORT FROM NIGHT NURSE FOR CONTINUITY OF CARE, PT IS STABLE, PT ASLEEP IN BED, NO SIGNS OF DISTRESS NOTED, RESPIRATIONS ARE EVEN AND UNLABORED ON ROOM AIR, PT HAS NO IV ACCESS, MD AWARE, PT NON-AMBULATORY DUE TO TRIMALCOLAR FACTURE, PT HAS ELBOW SLING, SAFETY MEASURES IN PLACE, WILL CONTINUE TO MONITOR.
[2020-07-18 08:00] VITALS: BP 131/74
--- NOTE | 2020-07-18 09:39 | NUR ---
ADMINISTERED SCHEDULED MEDICATION, NORCO FOR PAIN 01/29, MEDICATION EDUCATION PROVIDED, PT VERBALIZED UNDERSTANDING, PT TOLERATED WELL, PT IS STABLE, WILL CONTINUE TO MONITOR
--- NOTE | 2020-07-18 11:20 | NUR ---
LEFT VOICE MAIL MESSAGE TO [place] CERTIFIED FLEX ENDOSCOPE REPROCESSOR, PT WOULD LIKE TO SPEAK WITH CERTIFIED FLEX ENDOSCOPE REPROCESSOR. PT IS STABLE, NO SIGNS OF DISTRESS NOTED, WILL CONTINUE TO MONITOR.
--- NOTE | 2020-07-18 13:30 | NUR ---
PT RESTING IN BED, PT IS STABLE, NO SIGNS OF DISTRESS NOTED, CALL LIGHT WITHIN REACH, WILL CONTINUE TO MONITOR.
--- NOTE | 2020-07-18 14:59 | NUR ---
PT WANTS TO SPEAK WITH BAIT TIER SHE DOES NOT WANT TO GO TO [facility], NOTIFIED BAIT TIER AND CHARGE NURSE.
--- NOTE | 2020-07-18 15:44 | NUR ---
PER PATIENT SHE DO[facility]NT WANT TO [facility] TO [facility], SHE WILL GO HOME AND SHE IS AWARE WE WILL ORDER THE COMMODE, WHEELCHAIR AND HOME HEALTH TUESDAY, PER NEWS EDITOR WE CAN ARRANGE FOR [facility].
[2020-07-18 16:00] VITALS: BP 117/76
--- NOTE | 2020-07-18 16:46 | NUR ---
PER [facility] THEY WILL PECAN MALLOW DIPPER PT AROUND 1830,
--- NOTE | 2020-07-18 18:29 | NUR ---
ADMINISTERED TYLENOL FOR MINOR PAIN, MEDICATION EDUCATION PROVIDED, PT VERBALIZED UNDERSTANDING, PT TOLERATED WELL, PT IS STABLE, WILL CONTINUE TO MONITOR.
--- NOTE | 2020-07-18 18:47 | NUR ---
PROVIDED DISCHARGED INSTRUCTIONS, PT VERBALIZED UNDERSTANDING, PT IS STABLE, PT DISCHARGED AND TRANSPORTED HOME BY [facility]. PT REFUSED FLU/ PNA VACCINE
== END 2020-07-18 18:47 | disposition home health service (06) | DRG 494 ==
LOC: MED 19:29 → MTU 22:14
PROC: 0QSGXZZ Reposition Right Tibia, External Approach (ICD-10-PCS; 2020-07-13)
PROC: 0QSJXZZ Reposition Right Fibula, External Approach (ICD-10-PCS; 2020-07-13)
PROC: 2W3QX1Z Immobilization of Right Lower Leg using Splint (ICD-10-PCS; 2020-07-13)
PROC: 0QSG04Z Reposition Right Tibia with Internal Fixation Device, Open Approach (ICD-10-PCS; 2020-07-14)
PROC: 0QSJ04Z Reposition Right Fibula with Internal Fixation Device, Open Approach (ICD-10-PCS; principal; 2020-07-14 19:30)
DX: S82.851A Displaced trimalleolar fracture of right lower leg, initial encounter for closed fracture (principal); F32.9 Major depressive disorder, single episode, unspecified; F41.9 Anxiety disorder, unspecified; W18.30XA Fall on same level, unspecified, initial encounter; S52.121A Displaced fracture of head of right radius, initial encounter for closed fracture; E78.5 Hyperlipidemia, unspecified; D72.829 Elevated white blood cell count, unspecified; R73.03 Prediabetes; E83.42 Hypomagnesemia; E87.6 Hypokalemia; Z20.828 Contact with and (suspected) exposure to other viral communicable diseases; E83.39 Other disorders of phosphorus metabolism; Z88.8 Allergy status to other drugs, medicaments and biological substances; Y93.89 Activity, other specified; Y92.89 Other specified places as the place of occurrence of the external cause; Y99.8 Other external cause status; Z83.3 Family history of diabetes mellitus; Z82.49 Family history of ischemic heart disease and other diseases of the circulatory system
CPT/HCPCS: 27752; 36415; 71045; 73080; 73200; 73610; 80048; 80305; 81003; 82150; 83036; 83690; 83735; 83880; 84100; 84134; 84436; 84443; 84484; 85025; 85610; 85730; 87081; 97110; 97116; 97161-GP; 97530; 99285; C1713; J1100; J1644; J2001; J2250; J2270; J2405; J2704; J2710; J2765; J3010; J3490; J7120